=== PATIENT | female | born 2000 | race Caucasian/White ===

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

== ENCOUNTER 2021-11-29 22:41 | Emergency (ER) | payer OTHER ==
[~2021-11-29] VITALS: Ht 154.9 cm; Wt 72.6 kg
[~2021-11-29 22:41] MED LIST: ACET-8386 PO; IBUP-2213 PO
[2021-11-29 22:50] VITALS: BP 111/73
--- NOTE | 2021-11-29 22:53 | NUR ---
to lobby a/w bed ambulatory
--- NOTE | 2021-11-29 23:48 | NUR ---
PT TO BED 4
--- NOTE | 2021-11-29 23:50 | NUR ---
PT C/O RASH ON BILATERAL THIGHS, PT STATES IT STARTED EARLIER TODAY AND HAS REDUCED, SLIGHT HIVES AND REDNESS NOTED, PT DENIES ANY OTHER COMPLAINTS. DENIES SOB OR THROAT TIGHTNESS.
[2021-11-30] MEDS ORDERED: diphenhydrAMINE 50 MG CAP PO ONE (00:35)
[2021-11-30] MEDS ORDERED: DIPH25TA53 PO (00:37)
[2021-11-30] MEDS ORDERED: PRED20TA5 PO (00:37)
[2021-11-30 01:12] VITALS: BP 124/67
--- NOTE | 2021-11-30 01:12 | NUR ---
Patient discharged with v/s stable. Written and verbal after care instructions given and explained. Patient alert, oriented and verbalized understanding of instructions. Ambulatory with steady gait. All questions addressed prior to discharge. ID band removed. Patient advised to follow up with PMD. Rx SENT TO PHARMACY. Patient educated on indication of medication including possible reaction and side effects. Opportunity to ask questions provided and answered.
== END 2021-11-30 01:08 | disposition home or self-care (01) ==
LOC: MED 22:41
DX: R21 Rash and other nonspecific skin eruption (principal); L29.9 Pruritus, unspecified; Z79.891 Long term (current) use of opiate analgesic; Z79.1 Long term (current) use of non-steroidal anti-inflammatories (NSAID)
CPT/HCPCS: 99282; Q0163; 99283